=== PATIENT | male | born 1935 | race Caucasian/White ===

== ENCOUNTER 2017-01-25 14:02 | Emergency (ER) | payer SELFPAY ==
[~2017-01-25] VITALS: Ht 180.3 cm; Wt 120.5 kg
[2017-01-25 14:10] VITALS: BP 111/76
[2017-01-25] MEDS ORDERED: PREDAOS OU (14:10)
[2017-01-25 14:13] LABS: GLUCOSE,POINT OF CARE 130 MG/DL (70-110)
== END 2017-01-25 14:54 | disposition left against medical advice (07) ==
LOC: EMS 14:05
DX: H57.8 Other specified disorders of eye and adnexa (principal); E11.9 Type 2 diabetes mellitus without complications; I10 Essential (primary) hypertension; F17.210 Nicotine dependence, cigarettes, uncomplicated; Z53.21 Procedure and treatment not carried out due to patient leaving prior to being seen by health care provider
CPT/HCPCS: 82962

== ENCOUNTER 2025-02-20 19:07 | Emergency (ER) | payer MEDICARE ==
[~2025-02-20] VITALS: Ht 177.8 cm; Wt 111.6 kg
[2025-02-20 19:07] VITALS: BP 0/0; PULSE 0; RESP 0; O2SAT 0
[~2025-02-20 19:07] MED LIST: 0.9% SODIUM CHLORIDE 10 ML SYRINGE IVP ONE; ATROPINE SULFATE 0.1 MG/ML 10 ML SYRINGE IVP ONE; CALCIUM CHLORIDE 100 MG/ML 10 ML SYRINGE IVP ONE; EPINEPHrine 1:10,000 [1 MG/10 ML] SYRINGE ONE; PREDAOS OU
== END 2025-02-21 00:05 ==
LOC: EMS 19:09
DX: I46.9 Cardiac arrest, cause unspecified (principal); E11.9 Type 2 diabetes mellitus without complications; I11.0 Hypertensive heart disease with heart failure; J44.9 Chronic obstructive pulmonary disease, unspecified; F17.210 Nicotine dependence, cigarettes, uncomplicated; Z98.890 Other specified postprocedural states; Z79.899 Other long term (current) drug therapy; Z99.81 Dependence on supplemental oxygen; Z88.8 Allergy status to other drugs, medicaments and biological substances
CPT/HCPCS: 99285; 92950; J0461; J1265; J0169; J3490